=== PATIENT | male | born 1960 | race Caucasian/White ===

== ENCOUNTER 2020-04-24 19:56 | Emergency (ER) | payer BC, OTHER, SELFPAY ==
--- NOTE | 2020-04-24 20:42 | ER ---
Nurse's Notes [facility] Name: Eddie Joy Age: 59 yrs Sex: Male : 1960 Arrival Date: 04/24/2020 Time: 20:01 Bed 5 Private MD: Diagnosis: Other hemorrhoids Presentation: 04/24 20:03 Chief complaint: Patient states: having to strain to have a BM, reports having a pain sg now with what might be hemrrhoids. Coronavirus screen: Proceed with normal triage. Ebola Screen: Patient negative for fever greater than or equal to 101.5 degrees Fahrenheit, and additional compatible Ebola Virus Disease symptoms Patient denies exposure to infectious person. Patient denies travel to an Ebola-affected area in the 21 days before illness onset. No symptoms or risks identified at this time. Initial Sepsis Screen: Does the patient meet any 2 criteria? No. Patient's initial sepsis screen is negative. Does the patient have a suspected source of infection? No. Patient's initial sepsis screen is negative. Risk Assessment: Do you want to hurt yourself or someone else? Patient reports no desire to harm self or others. Onset of symptoms was April 24, 2020. Care prior to arrival: None. 20:03 Method Of Arrival: Ambulatory sg 20:03 Acuity: LILLY 4 sg Triage Assessment: 20:40 General: Appears in no apparent distress. comfortable, Behavior is calm, cooperative, rr5 appropriate for age. Historical: - Allergies: 20:03 No Known Allergies; sg - PMHx: 20:58 None; sg - PSHx: 20:58 None; sg - Immunization history:: Adult Immunizations unknown. - Social history:: Smoking status: unknown. Screenin:15 Abuse screen: Denies threats or abuse. Denies injuries from another. Nutritional rr5 screening: No deficits noted. Tuberculosis screening: No symptoms or risk factors identified. Fall Risk None identified. Total Alford Fall Scale indicates No Risk (0-24 pts). Assessment: 20:40 General: Appears in no apparent distress. comfortable, Behavior is calm, cooperative, rr5 appropriate for age. Pain: Complains of pain in rectum Pain currently is 4 out of 10 on a pain scale. Quality of pain is described as aching, Pain began gradually, Is intermittent. Neuro: Level of Consciousness is awake, alert, obeys commands, Oriented to person, place, time, situation. Cardiovascular: Capillary refill < 3 seconds Patient's skin is warm and dry. Respiratory: Airway is patent Respiratory effort is even, unlabored, Respiratory pattern is regular, symmetrical. GI: Reports constipation, rectal pain. : No signs and/or symptoms were reported regarding the genitourinary system. EENT: No signs and/or symptoms were reported regarding the EENT system. Derm: Skin is intact, is healthy with good turgor, Skin temperature is warm. Musculoskeletal: Circulation, motion, and sensation intact. Capillary refill < 3 seconds. 21:02 Reassessment: Patient appears in no apparent distress at this time. Patient is alert, rr5 oriented x 3, equal unlabored respirations, skin warm/dry/pink. discharge instruction given and explained without complaints made. Vital Signs: 20:03 BP 134 / 72; Pulse 87; Resp 18; Temp 97.7; Pulse Ox 100% on R/A; Pain 4/10; sg 21:03 BP 136 / 85; Pulse 96; Resp 17; Pulse Ox 99% ; Pain 0/10; rr5 ED Course: 20:01 Patient arrived in ED. cf2 20:03 Triage completed. sg 20:03 Arm band placed on. sg 20:16 Bartolome Guardado MD is Attending Physician. snw 20:40 Romaine May RN is Primary Nurse. rr5 20:40 Patient has correct armband on for positive identification. Call light in reach. rr5 20:41 Davidson Carrera MD is Referral Physician. tw4 20:41 Blake Paz MD is Referral Physician. tw4 21:02 No provider procedures requiring assistance completed. Patient did not have IV access rr5 during this emergency room visit. Administered Medications: 20:55 Drug: Colace 100 mg Route: PO; rr5 21:02 Follow up: Response: Medication administered at discharge. rr5 Outcome: 20:42 Discharge ordered by . tw4 21:02 Discharged to home ambulatory. rr5 21:02 Condition: stable 21:02 Discharge instructions given to patient, Instructed on discharge instructions, follow up and referral plans. medication usage, Demonstrated understanding of instructions, follow-up care, medications, Prescriptions given X 3. 21:05 Patient left the ED. sg Signatures: Ronak Arredondo RN RN Jerilyn Tylery, KNITTER HELPER-C KNITTER HELPER-Csnw Bartolome Guardado MD MD tw4 Romaine May RN RN rr5 Spike Beavers 2 Corrections: (The following items were deleted from the chart) 20:13 20:03 Acuity: LILLY 3 [place]
--- NOTE | 2020-04-24 20:42 | EDPHYS ---
Physician Documentation [facility] Name: Eddie Joy Age: 59 yrs Sex: Male : 1960 Arrival Date: 04/24/2020 Time: 20:01 Bed 5 Private MD: ED Physician Bartolome Guardado HPI: 04/24 20:35 This 59 yrs old Male presents to ER via Ambulatory with complaints of Rectal tw4 Pain, RECTAL PROBLEM. 20:35 The patient presents to the emergency department with pain in the rectal area, that is tw4 moderate. Onset: The symptoms/episode began/occurred 4 day(s) ago. Context: the patient has a known history of hemorrhoids. Modifying factors: The symptoms are alleviated by sitz baths, The symptoms are aggravated by bowel movement, sitting position. Associate signs and symptoms: The patient has no apparent associated signs or symptoms. The patient has experienced a previous episode. The patient has not recently seen a physician. Historical: - Allergies: 20:03 No Known Allergies; sg - PMHx: 20:58 None; sg - PSHx: 20:58 None; sg - Immunization history:: Adult Immunizations unknown. - Social history:: Smoking status: unknown. ROS: 20:35 Constitutional: Negative for fever, chills, and weight loss, Eyes: Negative for injury, tw4 pain, redness, and discharge, Cardiovascular: Negative for chest pain, palpitations, and edema, Respiratory: Negative for shortness of breath, cough, wheezing, and pleuritic chest pain, MS/Extremity: Negative for injury and deformity, Skin: Negative for injury, rash, and discoloration, Neuro: Negative for headache, weakness, numbness, tingling, and seizure. 20:35 Abdomen/GI: Positive for rectal pain, Negative for abdominal pain, nausea and vomiting, nausea, vomiting, and diarrhea, nausea, vomiting, diarrhea, abdominal cramps, abdominal distension, dysphagia, hematemesis. Exam: 20:35 Constitutional: This is a well developed, well nourished patient who is awake, alert, tw4 and in no acute distress. Head/Face: Normocephalic, atraumatic. Chest/axilla: Normal chest wall appearance and motion. Nontender with no deformity. No lesions are appreciated. Cardiovascular: Regular rate and rhythm with a normal S1 and S2. No gallops, murmurs, or rubs. Normal PMI, no JVD. No pulse deficits. Respiratory: Lungs have equal breath sounds bilaterally, clear to auscultation and percussion. No rales, rhonchi or wheezes noted. No increased work of breathing, no retractions or nasal flaring. Skin: Warm, dry with normal turgor. Normal color with no rashes, no lesions, and no evidence of cellulitis. MS/ Extremity: Pulses equal, no cyanosis. Neurovascular intact. Full, normal range of motion. Neuro: Awake and alert, GCS 15, oriented to person, place, time, and situation. Cranial nerves II-XII grossly intact. Motor strength 5/5 in all extremities. Sensory grossly intact. Cerebellar exam normal. Normal gait. 20:35 Abdomen/GI: Rectal exam: hemorrhoid(s), external, with inflammation, with pain, without bleeding, without thrombosis, mass, that is moderate-sized, with tenderness, swelling, that is moderate. Vital Signs: 20:03 BP 134 / 72; Pulse 87; Resp 18; Temp 97.7; Pulse Ox 100% on R/A; Pain 4/10; sg 21:03 BP 136 / 85; Pulse 96; Resp 17; Pulse Ox 99% ; Pain 0/10; rr5 MDM: 20:16 Patient medically screened. snw 20:35 Differential diagnosis: hemorrhoids, abscess. Data reviewed: vital signs, nurses notes. tw4 Data interpreted: Pulse oximetry: Interpretation: normal. Counseling: I had a detailed discussion with the patient and/or guardian regarding: the historical points, exam findings, and any diagnostic results supporting the discharge/admit diagnosis. Special discussion: I discussed with the patient/guardian in detail that at this point there is no indication for admission to the hospital. It is understood, however, that if the symptoms persist or worsen the patient needs to return immediately for re-evaluation. Administered Medications: 20:55 Drug: Colace 100 mg Route: PO; rr5 21:02 Follow up: Response: Medication administered at discharge. rr5 Disposition: 04/24/20 20:42 Discharged to Home. Impression: Other hemorrhoids. - Condition is Stable. - Discharge Instructions: High-Fiber Diet, Hemorrhoids, How to Take a Sitz Bath, Disposable Sitz Bath, Nonsurgical Procedures for Hemorrhoids, Care After. - Prescriptions for Anusol- HC 2.5 % Rectal Cream - Apply to affected area 1 application by TOPICAL route every 8 hours As needed; 30 gram. Colace 100 mg Oral Tablet - take 1 tablet by ORAL route every 12 hours; 14 tablet. Anusol- HC 25 mg Rectal Suppository - insert 1 suppository by RECTAL route every 12 hours As needed; 20 suppository. - Medication Reconciliation Form, Thank You Letter, Antibiotic Education, Prescription Opioid Use form. - Follow up: Private Physician; When: Upon discharge from the Emergency Department; Reason: Recheck today's complaints, Continuance of care, Re-evaluation by your physician. Follow up: Davidson Carrera MD; When: Upon discharge from the Emergency Department; Reason: Recheck today's complaints, Continuance of care, Re-evaluation by your physician. Follow up: Blake Paz MD; When: Upon discharge from the Emergency Department; Reason: Recheck today's complaints, Continuance of care, Re-evaluation by your physician. - Problem is an ongoing problem. - Symptoms are unchanged. Signatures: Ronak Arredondo, RN RN sg Manju Gamboa, LANGUAGE TRANSLATOR-C LANGUAGE TRANSLATOR-Csnw Bartolome Guardado MD MD tw4 Romaine May RN RN rr5 Corrections: (The following items were deleted from the chart) 21:05 20:42 04/24/2020 20:42 Discharged to Home. Impression: Other hemorrhoids. Condition is sg Stable. Forms are Medication Reconciliation Form, Thank You Letter, Antibiotic Education, Prescription Opioid Use. Follow up: Private Physician; When: Upon discharge from the Emergency Department; Reason: Recheck today's complaints, Continuance of care, Re-evaluation by your physician. Follow up: Davidson Carrera; When: Upon discharge from the Emergency Department; Reason: Recheck today's complaints, Continuance of care, Re-evaluation by your physician. Follow up: Blake Paz; When: Upon discharge from the Emergency Department; Reason: Recheck today's complaints, Continuance of care, Re-evaluation by your physician. Problem is an ongoing problem. Symptoms are unchanged. tw4
[2020-04-24] MEDS ORDERED: DOCUSATE NA 100 MG CAP PO ONE (21:04)
[2020-04-24 21:10] VITALS: TEMP 97.7
[2020-04-24 21:11] VITALS: BP 136/85; O2SAT 99
== END 2020-04-24 21:05 | disposition home or self-care (01) ==
LOC: ER 19:56
DX: K64.8 Other hemorrhoids (principal)
CPT/HCPCS: 99283